=== PATIENT | male | born 1980 | race African-American/Black ===

== ENCOUNTER 2017-10-01 10:29 | Emergency (ER) | payer MEDICAID ==
[~2017-10-01] VITALS: Ht 177.8 cm; Wt 71.0 kg
[~2017-10-01 10:29] MED LIST: BENZ1TAB7; HAL05; PHEN-434
[2017-10-01 11:40] LABS: HEMATOCRIT 39.2 % (42.0-52.0); HEMOGLOBIN 13.2 g/dL (14.0-18.0); MEAN CORPUSCULAR HEMOGLOBIN 27.1 pg (28.0-32.0); MEAN CORPUSCULAR VOLUME 80.6 fL (80.0-94.0); PLATELET 217 x1000/uL (130-400); RED BLOOD CELL COUNT 4.87 mill/uL (4.7-6.1); RED CELL DISTRIBUTION WIDTH 14.8 % (11.6-14.6)
[2017-10-01 11:46] LABS: CHLORIDE 109 mEq/L (98-107)
[2017-10-01 11:49] LABS: ETHANOL BLOOD < 10 mg/dL
[2017-10-01 12:53] LABS: *BARBITURATES SCREEN URINE NEGATIVE (NEGATIVE)
[2017-10-01 12:54] LABS: *AMPHETAMINES SCREEN URINE NEGATIVE (NEGATIVE); *BENZODIAZEPINES SCREEN URINE PRESUMTIVE POSITIVE (NEGATIVE); *COCAINE SCREEN URINE PRESUMTIVE POSITIVE (NEGATIVE); CANNABINOID URINE SCREEN NEGATIVE (NEGATIVE); METHADONE URINE SCREEN NEGATIVE (NEGATIVE); OPIATES URINE SCREEN NEGATIVE (NEGATIVE); PHENCYCLIDINE URINE SCREEN NEGATIVE (NEGATIVE)
[2017-10-02 17:59] VITALS: BP 127/76
== END 2017-10-02 19:47 | disposition home or self-care (01) ==
LOC: ER 10:44
DX: R45.851 Suicidal ideations (principal); F32.9 Major depressive disorder, single episode, unspecified; E86.0 Dehydration; E87.8 Other disorders of electrolyte and fluid balance, not elsewhere classified; F14.10 Cocaine abuse, uncomplicated; F20.9 Schizophrenia, unspecified; R56.9 Unspecified convulsions; F17.200 Nicotine dependence, unspecified, uncomplicated; Z71.6 Tobacco abuse counseling
CPT/HCPCS: 36415; 80048; 80305; 85027; 99284; 99406; G0482; Z7610

== ENCOUNTER 2019-01-14 08:05 | Emergency (ER) | payer MEDICAID ==
[~2019-01-14] VITALS: Ht 177.8 cm; Wt 76.0 kg
[~2019-01-14 08:05] MED LIST changes: -HAL05; +HALO0.5T2
[2019-01-14] MEDS ORDERED: ACETAMINOPHEN 325MG TABLET PO STA (08:13)
[2019-01-14 08:22] VITALS: BP 130/86
[2019-01-14 08:57] LABS: CLARITY URINE CLEAR (CLEAR); COLOR URINE YELLOW (YELLOW); KETONES URINE NEGATIVE (NEGATIVE); LEUKOCYTE ESTERASE URINE NEGATIVE (NEGATIVE); NITRITE URINE NEGATIVE (NEGATIVE); OCCULT BLOOD URINE NEGATIVE (NEGATIVE); PROTEIN URINE NEGATIVE (NEGATIVE); UROBILINOGEN URINE 0.2 E.U./dL (0.2-1.0)
[2019-01-14 09:58] LABS: BASOPHILS % 0.6 % (0.0-2.0); EOSINOPHILS % 6.2 % (0.0-5.0); HEMATOCRIT. 38.4 % (42.0-52.0); HEMOGLOBIN. 12.8 g/dL (14.0-18.0); LYMPHOCYTES % 22.7 % (20.0-50.0); MEAN CORPUSCULAR HEMOGLOBIN 27.6 pg (28.0-32.0); MEAN CORPUSCULAR VOLUME 83.1 fL (80.0-94.0); MEAN PLATELET VOLUME 9.6 fl (7.4-10.4); MONOCYTES % 7.3 % (2.0-8.0); NEUTROPHILS % 63.2 % (40.0-76.0); PLATELET 157 x1000/uL (130-400); RED BLOOD CELL COUNT 4.62 mill/uL (4.7-6.1); RED CELL DISTRIBUTION WIDTH 17.2 % (11.6-14.6)
[2019-01-14 10:04] LABS: CHLORIDE 109 mEq/L (98-107)
== END 2019-01-14 11:12 | disposition home or self-care (01) ==
LOC: ER 08:05
DX: N20.0 Calculus of kidney (principal); I10 Essential (primary) hypertension; F20.9 Schizophrenia, unspecified; Z79.899 Other long term (current) drug therapy
CPT/HCPCS: 36415; 74176; 81003; 99284

== ENCOUNTER 2021-12-07 19:31 | Emergency (ER) | payer MEDICAID ==
[~2021-12-07] VITALS: Ht 177.8 cm; Wt 74.0 kg
[2021-12-07 19:37] VITALS: BP 137/87
== END 2021-12-08 02:30 | disposition left against medical advice (07) ==
LOC: ER 19:31
DX: Z53.21 Procedure and treatment not carried out due to patient leaving prior to being seen by health care provider (principal)

== ENCOUNTER 2022-02-10 14:36 | Emergency (ER) | payer MEDICAID ==
[~2022-02-10] VITALS: Ht 182.9 cm; Wt 82.0 kg
[2022-02-10] MEDS ORDERED: LORAZEPAM 2MG/ML CPJ IV STA (14:54)
[2022-02-10] MEDS ORDERED: SODIUM CHLORIDE 0.9% 1,000 ML IV ONE (15:00)
[2022-02-10] MEDS ORDERED: DIPHENHYDRAMINE 50MG/ML VIAL IV ONE (15:00)
[2022-02-10 15:45] LABS: CHLORIDE 110 mEq/L (98-107)
[2022-02-10 15:47] LABS: BASOPHILS % 0.6 % (0.0-2.0); EOSINOPHILS % 1.7 % (0.0-5.0); HEMATOCRIT. 32.8 % (42.0-52.0); HEMOGLOBIN. 10.7 g/dL (14.0-18.0); LYMPHOCYTES % 9.7 % (20.0-50.0); MEAN CORPUSCULAR HEMOGLOBIN 25.5 pg (28.0-32.0); MEAN CORPUSCULAR VOLUME 78.5 fL (80.0-94.0); MONOCYTES % 6.1 % (2.0-8.0); NEUTROPHILS % 81.9 % (40.0-76.0); PLATELET 190 x1000/uL (130-400); RED BLOOD CELL COUNT 4.18 mill/uL (4.7-6.1)
[2022-02-10 15:55] LABS: CREATINE KINASE 452 IU/L (39-308); ETHANOL BLOOD < 10 mg/dL
[2022-02-10 16:38] VITALS: BP 120/68
[2022-02-10 16:49] LABS: CLARITY URINE CLEAR (CLEAR); COLOR URINE YELLOW (YELLOW); KETONES URINE NEGATIVE (NEGATIVE); LEUKOCYTE ESTERASE URINE NEGATIVE (NEGATIVE); NITRITE URINE NEGATIVE (NEGATIVE); OCCULT BLOOD URINE NEGATIVE (NEGATIVE); PH URINE 5.5 (4.5-8.0); PROTEIN URINE NEGATIVE (NEGATIVE); UROBILINOGEN URINE 0.2 E.U./dL (0.2-1.0)
[2022-02-10 17:05] LABS: *AMPHETAMINES SCREEN URINE PRESUMTIVE POSITIVE (NEGATIVE); *BARBITURATES SCREEN URINE NEGATIVE (NEGATIVE); *BENZODIAZEPINES SCREEN URINE NEGATIVE (NEGATIVE); *COCAINE SCREEN URINE NEGATIVE (NEGATIVE); CANNABINOID URINE SCREEN NEGATIVE (NEGATIVE); METHADONE URINE SCREEN NEGATIVE (NEGATIVE); OPIATES URINE SCREEN NEGATIVE (NEGATIVE); PHENCYCLIDINE URINE SCREEN NEGATIVE (NEGATIVE)
== END 2022-02-11 02:16 | disposition home or self-care (01) ==
LOC: ER 14:36
DX: F15.10 Other stimulant abuse, uncomplicated (principal); I10 Essential (primary) hypertension; R00.0 Tachycardia, unspecified; F20.9 Schizophrenia, unspecified; G40.909 Epilepsy, unspecified, not intractable, without status epilepticus; Z88.8 Allergy status to other drugs, medicaments and biological substances
CPT/HCPCS: 36415; 71045; 80053; 80305; 80307; 80320; 80329; 81003; 82550; 84484; 85025; 96360; 96361; 99285; G0480

== ENCOUNTER 2023-12-07 18:31 | Emergency (ER) | payer MEDICAID ==
[~2023-12-07] VITALS: Ht 185.4 cm; Wt 85.0 kg
[~2023-12-07 18:31] MED LIST changes: -BENZ1TAB7; +BENZ1TAB79
[2023-12-07 18:39] VITALS: O2SAT 100
[2023-12-07 22:05] VITALS: BP 119/81; PULSE 90; RESP 18; TEMP 36.55848; O2SAT 99
== END 2023-12-07 22:08 | disposition home or self-care (01) ==
LOC: ER 18:31
DX: G24.09 Other drug induced dystonia (principal); Z88.8 Allergy status to other drugs, medicaments and biological substances; F20.9 Schizophrenia, unspecified
CPT/HCPCS: 99283

== ENCOUNTER 2024-02-18 19:02 | Emergency (ER) | payer MEDICAID ==
[~2024-02-18] VITALS: Ht 185.4 cm; Wt 90.0 kg
[2024-02-18 19:03] VITALS: BP 157/92; PULSE 106; RESP 16; TEMP 98; O2SAT 99
[2024-02-18] MEDS ORDERED: LEVETIRACETAM 500MG PREMIX 100 ML IV ONE (20:00)
[2024-02-18] MEDS ORDERED: SODIUM CHLORIDE 0.9% 1,000 ML IV ONE (20:00)
[2024-02-18] MEDS: LEVETIRACETAM 500MG TABLET PO ONE (20:45)
[2024-02-18 20:48] LABS: BASOPHILS % 0.5 % (0.0-2.0); DIFFERENTIAL COMMENT 0; EOSINOPHILS % 1.9 % (0.0-5.0); HEMATOCRIT. 39.5 % (42.0-52.0); LYMPHOCYTES % 10.2 % (20.0-50.0); MEAN CORPUSCULAR HEMOGLOBIN 25.7 pg (28.0-32.0); MEAN CORPUSCULAR HGB CONC 32.9 g/dL (31.0-37.0); MEAN CORPUSCULAR VOLUME 78.2 fL (80.0-94.0); MONOCYTES % 5.8 % (2.0-8.0); NEUTROPHILS % 81.6 % (40.0-76.0); PLATELET 225 x1000/uL (130-400); RED BLOOD CELL COUNT 5.05 mill/uL (4.7-6.1); RED CELL DISTRIBUTION WIDTH 16.5 % (11.6-14.6); WHITE BLOOD COUNT 11.3 x1000/uL (4.5-11.0)
[2024-02-18 20:56] LABS: CHLORIDE 107 mEq/L (98-107); POTASSIUM 3.4 mEq/L (3.5-5.1); SODIUM 141 mEq/L (136-145)
[2024-02-18 20:57] LABS: CALCIUM 9.4 mg/dL (8.7-10.4); CARBON DIOXIDE 24 mEq/L (21-32)
[2024-02-18 21:02] LABS: GLUCOSE 81 mg/dL (70-105); PHENYTOIN 2.1 ug/mL (10-20); UREA NITROGEN BLOOD 21 mg/dL (9-23)
[2024-02-18 21:04] LABS: ALANINE AMINOTRANSFERASE 18 IU/L (10-49); ALBUMIN 4.5 g/dL (3.2-4.8); ASPARTATE AMINOTRANSFERASE 23 IU/L (<34); BILIRUBIN DIRECT 0.2 mg/dL (<=3.0); BILIRUBIN TOTAL 0.6 mg/dL (0.1-1.0); PROTEIN TOTAL 7.3 g/dL (6.0-8.3)
[2024-02-18] MEDS ORDERED: PHEN100C4 MT (21:45)
[2024-02-18] MEDS: POTASSIUM CHLORIDE 20MEQ/PACKET PO ONE (22:13)
[2024-02-18] MEDS: PHENYTOIN SODIUM EXTENDED 100MG CAPSULE PO ONE (22:13)
== END 2024-02-18 22:37 | disposition home or self-care (01) ==
LOC: ER 19:02
DX: R56.9 Unspecified convulsions (principal); Z88.8 Allergy status to other drugs, medicaments and biological substances
CPT/HCPCS: 99284; 80076; 80048; 80185; 85025; 36415; 93005; J7030